=== PATIENT | female | born 1985 | race Caucasian/White ===

== ENCOUNTER 2016-06-25 16:47 | Emergency (ER) | payer MEDICAID ==
[2016-06-25 17:25] VITALS: BP 119/78; PULSE 95; RESP 14; TEMP 97.7; O2SAT 97
--- NOTE | 2016-06-25 17:58 | UCPHY ---
H & P Time Seen by Provider: 06/25/16 17:26 Patient Type: Established HPI/ROS: 30-year-old female presents complaining of cough, nasal congestion, sore throat and body aches for several days. Review of systems As per HPI General no fever no chills no weakness HEENT no eye pain no eye discharge. No eye redness, positive sore throat Respiratory positive cough, no shortness of breath Cardiac no chest pain, no peripheral edema GI no abdominal pain, no diarrhea, no constipation, no nausea, no vomiting no flank pain, no hematuria, no dysuria Musculoskeletal no myalgias, no joint pain Heme no easy bruising, no easy bleeding Endo no polyuria, no polydipsia Skin no rashes, no pruritus Neuro no syncope, no dizziness, no headaches Psych is no suicidal ideation, no homicidal ideation Past Medical/Surgical History: Noncontributory Social History: Alcohol socially, denies drug use Smoking Status: Current every day smoker Physical Exam: 30-year-old female Alert and oriented nontoxic appearance, no acute distress afebrile Atraumatic normocephalic Extraocular muscles intact, anicteric Nares mild yellowish discharge Oropharynx mild erythema no tonsillar swelling no exudate no uvular deviation, tolerating own secretions Neck supple no lymphadenopathy Lungs clear to auscultation bilaterally Heart regular rate and rhythm Abdomen normoactive bowel sounds soft nontender Extremities no cyanosis clubbing or edema Skin no rash Constitutional: Initial Vital Signs Temperature (C) 36.5 C 06/25/16 17:18 Heart Rate 95 06/25/16 17:18 Respiratory Rate 14 06/25/16 17:18 Blood Pressure 119/78 06/25/16 17:18 O2 Sat (%) 97 06/25/16 17:18 O2 Delivery Mode Room Air Allergies/Adverse Reactions: No Known Allergies Allergy (Verified 06/25/16 17:17) Home Medications: Medication Instructions Recorded GABAPENTIN 01/20/16 Amoxicillin/Clavulanate Pot 875 mg PO BID #20 tab 06/25/16 [Augmentin 875 MG TAB (*)] MIRTAZAPINE 06/25/16 Medical Decision Making ED Course/Re-evaluation: Patient seen and evaluated for cough nasal congestion. Differential diagnosis Pneumonia, URI, viral syndrome, bronchitis, sinusitis, pharyngitis Physical exam lungs clear to auscultation Impression Bronchitis/sinusitis Plan Augmentin Drink plenty of fluids, decongestant Follow-up PCP Departure - Departure Disposition: Home, Routine, Self-Care Clinical Impression: Bronchitis Condition: Good Instructions: Acute Bronchitis (ED) Referrals: WILI BLACKWELL,Pretty [Primary Care Provider] - As per Instructions Prescriptions: Amoxicillin/Clavulanate Pot [Augmentin 875 MG TAB (*)] 875 mg PO BID #20 tab - PQRS PQRS Measurement: na
== END 2016-06-25 18:03 | disposition home or self-care (01) ==
LOC: CED 16:47
DX: J40 Bronchitis, not specified as acute or chronic (principal)
CPT/HCPCS: 99214-PO; G0463-PO